=== PATIENT | male | born 2000 | race African-American/Black ===

== ENCOUNTER 2018-06-25 11:51 | Emergency (ER) | payer OTHER ==
--- NOTE | 2018-06-25 11:58 | ED ---
Psychiatric Complaint - HPI Summary HPI Summary: A 18 y/o M brought in by ambulance presents to ED for MHE due to SI with gesture three weeks ago. Pt has been seeing a counselor this semester, was recently tested for ADHD. He saw another doctor, who gave him a prescription for Ritalin, which he has been taking. He feels like he's really doing "all the right things" but then still felt he was failing and struggling, which is why he attempted to hang himself with a phone cord. This lasted about 1-2 minutes. He realized during it that doing this wasn't going to help anything and untied the cord. He states feeling fine "most of the week" and just has these critical moments. PMHx denies. Pt is a [employer] sophomore. He is from [place], [place]. - History Of Current Complaint Chief Complaint: EDMentalHealth Time Seen by Provider: 06/25/18 11:55 Hx Obtained From: Patient Onset/Duration: Still Present Severity Initially: Severe Severity Currently: Mild Character: Depressed Aggravating Factor(s): Recent Stress Has Suicidal: Reports: Demonstrates Gesture - Allergies/Home Medications Allergies/Adverse Reactions: Allergies Allergy/AdvReac Type Severity Reaction Status Date / Time No Known Allergies Allergy Verified 01/10/18 15:31 Home Medications: Home Medications Methylphenidate TAB* [Ritalin TAB*] 10 mg PO BID 06/25/18 [History Confirmed ] PMH/Surg Hx/FS Hx/Imm Hx Previously Healthy: Yes Endocrine/Hematology History: Denies: Hx Diabetes Cardiovascular History: Denies: Hx Hypertension, Hx Pacemaker/ICD History: Denies: Hx Renal Disease Sensory History: Denies: Hx Hearing Aid Psychiatric History: Denies: Hx Panic Disorder Infectious Disease History: No Infectious Disease History: Denies: Traveled Outside the [place] in Last 30 Days - Family History Known Family History: Positive: Other - sister - MH Family History: Pt is unsure of parental FHx. - Social History Occupation: Student Lives: Alone Alcohol Use: None Substance Use Type: Reports: None Hx Tobacco Use: No Smoking Status (MU): Never Smoked Tobacco Review of Systems Negative: Cough Psychological: Other - pos: SI gesture Positive: Depressed All Other Systems Reviewed And Are Negative: Yes Physical Exam - Summary Physical Exam Summary: Appearance: Well-appearing, Well-nourished, lying in bed comfortably Skin: Warm, dry, no obvious rash Eyes: sclera anicteric, no conjunctival pallor ENT: mucous membranes moist, pharynx appears normal Neck: Supple, nontender Respiratory: Clear to auscultation, no signs of respiratory distress Cardiovascular: Normal S1, S2. No murmurs. Normal distal pulses in tibial and radial bilaterally. Abdomen: Soft, nontender, normal active bowel sounds present Musculoskeletal: Normal, Strength/ROM Intact Neurological: A&Ox3, awake and alert, mentation is normal, speech is fluent and appropriate Psychiatric: affect is normal, does not appear anxious or depressed Triage Information Reviewed: Yes Vital Signs On Initial Exam: Initial Vitals Temp Pulse Resp BP Pulse Ox 97.6 F 60 18 145/109 93 06/25/18 11:52 06/25/18 11:52 06/25/18 11:52 06/25/18 11:52 06/25/18 11:52 Vital Signs Reviewed: Yes Diagnostics - Vital Signs Vital Signs Temp Pulse Resp BP Pulse Ox 06/25/18 11:52 97.6 F 60 18 145/109 93 - Laboratory Result Diagrams: 06/25/18 12:17 06/25/18 12:17 Lab Statement: Any lab studies that have been ordered have been reviewed, and results considered in the medical decision making process. Course/Dx - Course Course Of Treatment: Pt is a 18 y/o M who is a [employer] sophomore presenting for MHE. Three weeks ago, pt attempted to hang himself with a phone cord. He feels like he's doing "all the right things" and feels good most of the week, but then he has these critical moments where he struggles, feels desperate. He sees a counselor at [employer]. Labwork and UA are unremarkable. Pt is medically clear for MHE at 1208. Pt will be discharged home per Dr. Moreno, psych. - Differential Dx/Clinical Impression Provider Diagnosis: Depression, Anxiety Discharge - Sign-Out/Discharge Documenting (check all that apply): Patient Departure - DC Patient Received Moderate/Deep Sedation with Procedure: No - Discharge Plan Condition: Good Disposition: HOME Patient Education Materials: Depression (ED), Anxiety (ED) Referrals: [facility] - Kehinde BELL [Primary Care Provider] - - Billing Disposition and Condition Condition: GOOD Disposition: Home - Attestation Statements Document Initiated by Chaparritaibe: Yes Documenting Scribe: Vielka Toribio Provider For Whom Kenyon is Documenting (Include Credential): Dr. Gurmeet Davidson MD Scribe Attestation: IVielka, scribed for Dr. Gurmeet Davidson MD on 06/28/18 at 0626. Scribe Documentation Reviewed: Yes Provider Attestation: The documentation as recorded by the kenyon, Vielka Toribio accurately reflects the service I personally performed and the decisions made by me, Dr. Gurmeet Davidson MD Status of Scribe Document: Viewed
[2018-06-25 12:21] LABS: Urine Appearance Cloudy; Urine Bilirubin Negative (Negative); Urine Blood Negative (Negative); Urine Color Yellow; Urine Glucose Negative (Negative); Urine Ketones Negative (Negative); Urine Nitrite Negative (Negative); Urine Protein Negative (Negative); Urine Urobilinogen Negative (Negative)
[2018-06-25 12:34] LABS: ABS Basophils 0 10^3/ul (0-0.2); ABS Eosinophils 0 10^3/ul (0-0.6); ABS Lymphocytes 1.2 10^3/ul (1.0-4.8); ABS Monocytes 0.6 10^3/ul (0-0.8); ABS Neutrophils 6.5 10^3/ul (1.5-7.7); ABS Nucleated RBC 0 10^3/ul; Eosinophil % 0.4 %; Hematocrit 47 % (36-46); Hemoglobin 15.8 g/dL (14.0-18.0); Lymphocyte % 14.5 %; Mean Corpuscular HGB Conc 34 g/dL (31-36); Mean Corpuscular Hemoglobin 31 pg (27-31); Mean Corpuscular Volume 92 fL (80-94); Mean Platelet Volume 8.9 fL (7.4-10.4); Nucleated Red Blood Cells % 0; Platelet Count 189 10^3/uL (150-450); Red Cell Distribution Width 13 % (10.5-15); White Blood Count 8.4 10^3/uL (3.5-10.8)
[2018-06-25 12:43] LABS: Urine Benzodiazepine Screen None Detected (None Detect); Urine Opiates Screen None Detected (None Detect)
[2018-06-25 12:45] LABS: ALT 11 U/L (7-52); AST 16 U/L (13-39); Albumin 4.7 g/dL (3.2-5.2); Albumin/Globulin Ratio 1.6 (1-3); Alkaline Phosphatase 63 U/L (34-104); Anion Gap 7 mmol/L (2-11); BUN/Creatinine Ratio 10.9 (8-20); Blood Urea Nitrogen 10 mg/dL (6-24); CO2 Carbon Dioxide 29 mmol/L (22-32); Calcium 9.8 mg/dL (8.6-10.3); Chloride 103 mmol/L (101-111); EGFR African American 126.9 (>60); EGFR Non-African American 104.9 (>60); Globulin 2.9 g/dL (2-4); Glucose 97 mg/dL (70-100); Potassium 3.9 mmol/L (3.5-5.0); Sodium 139 mmol/L (135-145); Total Protein 7.6 g/dL (6.4-8.9)
[2018-06-25 13:08] LABS: Alcohol < 10 mg/dL (<10); Salicylate < 2.50 mg/dL (<30)
[2018-06-25 13:22] LABS: TSH (Thyroid Stimulating Horm) 0.99 mcIU/mL (0.34-5.60)
[2018-06-25 13:25] LABS: Acetaminophen 0 mcg/mL
[2018-06-25 16:24] VITALS: BP 0/0
== END 2018-06-25 16:23 | disposition home or self-care (01) ==
LOC: ED 11:51
DX: F32.9 Major depressive disorder, single episode, unspecified (principal); F41.9 Anxiety disorder, unspecified
CPT/HCPCS: 36415; 80053; 80307; 80320; 80329; 81003; 84443; 85025; 99283; G0480

== ENCOUNTER 2018-07-11 14:47 | Emergency (ER) | payer OTHER ==
--- NOTE | 2018-07-11 15:15 | ED ---
Psychiatric Complaint - HPI Summary HPI Summary: A 18 y/o male brought in by [employer] ambulance and police presents to [facility] with a chief complaint of "having the urge to hurt himself" [employer]. The patient claims that he was hyperventilating when his roommates called an ambulance. He does not wish to speak about things that he is dealing with because he is afraid that it will send him into shock. Pt denies any fever, chills, erythema of eyes , sore throat, CP, SOB, cough, abdominal pain, N/V, dysuria, hematuria, myalgia , edema, rash, or dizziness. He is taking 20 mg Ritalin. He denies any current SI or HI. - History Of Current Complaint Chief Complaint: EDMentalHealth Time Seen by Provider: 07/11/18 15:01 Hx Obtained From: Patient, EMS, Other: - police Onset/Duration: Sudden Onset, Lasting Hours, Still Present Timing: Constant Severity Initially: Mild Severity Currently: Mild Character: Depressed Aggravating Factor(s): Nothing Alleviating Factor(s): Nothing Related History: Positive For: Prior Psychiatric Issues Has Suicidal: Denies: Thoughts Has Homicidal: Denies: Thoughts - Allergies/Home Medications Allergies/Adverse Reactions: Allergies Allergy/AdvReac Type Severity Reaction Status Date / Time No Known Allergies Allergy Verified 01/10/18 15:31 PMH/Surg Hx/FS Hx/Imm Hx Endocrine/Hematology History: Denies: Hx Diabetes Cardiovascular History: Denies: Hx Hypertension, Hx Pacemaker/ICD History: Denies: Hx Renal Disease Sensory History: Denies: Hx Hearing Aid Psychiatric History: Denies: Hx Eating Disorder, Hx Panic Disorder, Hx of Violent Episodes Against Others Infectious Disease History: No Infectious Disease History: Denies: Traveled Outside the [place] in Last 30 Days - Family History Known Family History: Positive: Other - sister - MH - Social History Alcohol Use: Weekly Substance Use Type: Reports: None Hx Tobacco Use: No Smoking Status (MU): Never Smoked Tobacco Review of Systems Negative: Fever, Chills Negative: Erythema Negative: Sore Throat Negative: Chest Pain Negative: Shortness Of Breath, Cough Negative: Abdominal Pain, Vomiting, Nausea Negative: dysuria, hematuria Negative: Myalgia, Edema Negative: Rash Neurological: Negative - dizziness Psychological: Other - negative: SI or HI Positive: Other - positive: "urges to hurt himself" [employer] All Other Systems Reviewed And Are Negative: Yes Physical Exam - Summary Physical Exam Summary: Constitutional: Well-developed, Well-nourished, Alert. (-) Distressed Skin: Warm, Dry HENT: Normocephalic; Atraumatic Eyes: Conjunctiva normal Neck: Musculoskeletal ROM normal neck. (-) JVD, (-) Stridor, (-) Tracheal deviation Cardio: Rhythm regular, rate normal, Heart sounds normal; Intact distal pulses; The pedal pulses are 2+ and symmetric. Radial pulses are 2+ and symmetric. (-) Murmur Pulmonary/Chest wall: Effort normal. (-) Respiratory distress, (-) Wheezes, (-) Rales Abd: Soft, (-) tenderness, (-) Distension, (-) Guarding, (-) Rebound Musculoskeletal: (-) Edema Lymph: (-) Cervical adenopathy Neuro: Alert, Oriented x3 Psych: Mood and affect Normal Triage Information Reviewed: Yes Vital Signs On Initial Exam: Initial Vitals Temp Pulse Resp BP Pulse Ox 98.0 F 101 25 139/60 100 07/11/18 14:54 07/11/18 14:54 07/11/18 14:54 07/11/18 14:54 07/11/18 14:54 Vital Signs Reviewed: Yes Diagnostics - Vital Signs Vital Signs Temp Pulse Resp BP Pulse Ox 07/11/18 14:54 98.0 F 101 25 139/60 100 - Laboratory Result Diagrams: 07/11/18 15:27 07/11/18 15:27 Lab Statement: Any lab studies that have been ordered have been reviewed, and results considered in the medical decision making process. Re-Evaluation - Re-Evaluation First Eval Re-Evaluation Time: 15:44 Change: Unchanged Comment: Pt cleared for MHE. Course/Dx - Course Course Of Treatment: A 18 y/o male brought in by [employer] ambulance and police presents to [facility] with a chief complaint of "having the urge to hurt himself" [employer]. The patient claims that he was hyperventilating when his roommates called an ambulance. He does not wish to speak about things that he is dealing with because he is afraid that it will send him into shock. He denies any current SI or HI. Bloodwork, chemistries, urines and toxicology obtained and the patient has been cleared for MHE. Per mental health carbon lamp cleaner, Dr. Chacon has cleared the patient for discharge. Dx: unspecified anxiety disorder. - Differential Dx/Clinical Impression Provider Diagnosis: Anxiety disorder, unspecified - Physician Notifications Discussed Care Of Patient With: Calvin Chacon Time Discussed With Above Provider: 18:39 Instructed by Provider To: Other - Per mental health carbon lamp cleaner, Dr. Chacon has cleared the patient for discharge. Dx: unspecified anxiety disorder. Discharge - Sign-Out/Discharge Documenting (check all that apply): Patient Departure Patient Received Moderate/Deep Sedation with Procedure: No - Discharge Plan Condition: Stable Disposition: HOME Referrals: [facility] - Kehinde [Primary Care Provider] - - Attestation Statements Document Initiated by Scribe: Yes Documenting Scribe: Silvestre Tejeda Provider For Whom Scribe is Documenting (Include Credential): Galindo Rod MD Scribe Attestation: ISilvestre, scribed for Galindo Rod MD on 07/11/18 at 1839. Status of Scribe Document: Ready
[2018-07-11 15:32] LABS: ABS Lymphocytes 1.5 10^3/ul (1.0-4.8); ABS Monocytes 0.7 10^3/ul (0-0.8); ABS Neutrophils 7.7 10^3/ul (1.5-7.7); Eosinophil % 0.2 %; Hematocrit 48 % (42-52); Hemoglobin 16.4 g/dL (14.0-18.0); Lymphocyte % 15.3 %; Mean Corpuscular HGB Conc 34 g/dL (31-36); Mean Corpuscular Hemoglobin 31 pg (27-31); Mean Corpuscular Volume 90 fL (80-94); Mean Platelet Volume 8.2 fL (7.4-10.4); Nucleated Red Blood Cells % 0.1; Platelet Count 240 10^3/uL (150-450); Red Blood Count 5.26 10^6 /uL (4.18-5.48); Red Cell Distribution Width 13 % (10.5-15)
[2018-07-11 15:51] LABS: ALT 14 U/L (7-52); AST 19 U/L (13-39); Albumin 5.1 g/dL (3.2-5.2); Albumin/Globulin Ratio 1.7 (1-3); Alkaline Phosphatase 66 U/L (34-104); Anion Gap 7 mmol/L (2-11); BUN/Creatinine Ratio 12.1 (8-20); Blood Urea Nitrogen 12 mg/dL (6-24); CO2 Carbon Dioxide 29 mmol/L (22-32); Calcium 10.9 mg/dL (8.6-10.3); Chloride 102 mmol/L (101-111); EGFR African American 116.6 (>60); EGFR Non-African American 96.4 (>60); Glucose 102 mg/dL (70-100); Potassium 4.4 mmol/L (3.5-5.0); Sodium 138 mmol/L (135-145); Total Protein 8.1 g/dL (6.4-8.9)
[2018-07-11 16:09] LABS: Urine Appearance Clear; Urine Bilirubin Negative (Negative); Urine Blood Negative (Negative); Urine Color Straw; Urine Glucose Negative (Negative); Urine Ketones Negative (Negative); Urine Nitrite Negative (Negative); Urine Protein Negative (Negative); Urine Specific Gravity 1.008 (1.010-1.030); Urine Urobilinogen Negative (Negative)
[2018-07-11 16:21] LABS: Urine Benzodiazepine Screen None Detected (None Detect); Urine Opiates Screen None Detected (None Detect)
[2018-07-11 16:26] LABS: Alcohol < 10 mg/dL (<10); Salicylate < 2.50 mg/dL (<30)
[2018-07-11 16:39] LABS: TSH (Thyroid Stimulating Horm) 0.87 mcIU/mL (0.34-5.60)
[2018-07-11 16:48] LABS: Acetaminophen < 15 mcg/mL
[2018-07-11 19:15] VITALS: BP 133/44
== END 2018-07-11 19:13 | disposition home or self-care (01) ==
LOC: ED 14:47
DX: F41.9 Anxiety disorder, unspecified (principal)
CPT/HCPCS: 36415; 80053; 80307; 80320; 80329; 81003; 84443; 85025; 99284; G0480